=== PATIENT | female | born 1960 | race Asian ===

== ENCOUNTER → 2018-12-22 | Outpatient (CLI) | payer OTHER ==
[~2018-12-22] MED LIST: LEFLUNOMIDE10 MG PO; MELOXICAM7.5 MG PO; NEXIUM40 MG PO; ULTRAM50 MG PO
== END ==
LOC: MAMMO 12:26
PROVIDERS: ATTEND Internal Medicine
DX: Z12.31 Encounter for screening mammogram for malignant neoplasm of breast (principal)
CPT/HCPCS: 77067